=== PATIENT | female | born 1990 | race Caucasian/White ===

== ENCOUNTER → 2016-09-23 | Outpatient (CLI) | payer BC, SELFPAY | LOC: KOH-I 13:46 | DX: R51 Headache (principal); L98.9 Disorder of the skin and subcutaneous tissue, unspecified | CPT/HCPCS: 70450 ==

== ENCOUNTER → 2016-10-27 | Outpatient (CLI) | payer BC, SELFPAY | LOC: CT 09:00 → KOH-I 09:00 | DX: J32.9 Chronic sinusitis, unspecified (principal); R51 Headache | CPT/HCPCS: 70486 ==